=== PATIENT | male | born 1965 | race African-American/Black ===

== ENCOUNTER 2017-10-03 11:13 | Day surgery (SDC) | payer BC ==
[2017-10-03] MEDS: NS 1,000 ML IV (11:42)
[2017-10-03] MEDS ORDERED: PROPOFOL 200 MG/20 ML VIAL As Ordered ×2 (12:26→12:31)
== END 2017-10-03 13:07 | disposition home or self-care (01) ==
LOC: M OPP 11:13
DX: Z12.11 Encounter for screening for malignant neoplasm of colon (principal); K64.8 Other hemorrhoids; K63.5 Polyp of colon; I10 Essential (primary) hypertension; M10.9 Gout, unspecified; G47.30 Sleep apnea, unspecified; R06.83 Snoring; Z79.82 Long term (current) use of aspirin; Z79.899 Other long term (current) drug therapy; Z99.89 Dependence on other enabling machines and devices
CPT/HCPCS: 45385